=== PATIENT | male | born 1950 | race American Indian/Alaskan Native ===

== ENCOUNTER → 2017-09-03 | Day surgery (SDC) | payer MEDICARE, MEDICAID ==
[~2017-09-03] MED LIST: Dextrose 5%-0.45% NaCl 1,000 ML IV SCH; Midazolam 1 MG/ML 2 ML SDV IV ONE; Midazolam 1 MG/ML 2 ML SDV ONE; Sodium Chloride 0.9% 10 ML Syringe FLUSH PRN; fentaNYL 100 MCG/2 ML SDV IV ONE; fentaNYL 100 MCG/2 ML SDV ONE
--- NOTE | 2017-09-03 09:41 | OR ---
DATE: 09/03/2017 PROCEDURE: Esophagogastroduodenoscopy and multiple pinch biopsies. INSTRUMENT USED: GIF-Q180 Olympus video panendoscope. PREMEDICATIONS: No oral topical anesthesia used. Fentanyl 100 mcg intravenous, Versed 2 mg intravenous. Nasal O2 cannula. The procedure was done under pulse oximetry, BP recording, and animal care assistant. INDICATION: The patient with progressive dysphagia, unexplained. Esophagogastroduodenoscopy is performed for detection of any active erosive lesions, Manzo's esophagus and/or malignancy also under consideration, H. pylori status to be determined, esophageal dilatations if indicated, endoscopic hemostasis therapy if needed. DESCRIPTION OF PROCEDURE: The scope was passed with ease. Adequate visualization of the esophagus was made from proximal to distal areas. No upper esophageal lesions identified. Grade A erosive changes were noted by [place] criteria. No uphill or downhill esophageal varices noted. No Kelly- Weinberg tear. There was some stricture of the distal esophagus, but the tip of the scope was passed with ease to visualize the gastric mucosa. Sliding hiatal hernia was noted. Gastric fundus examination by retroflexion showed no polypoid lesions. No gastric polyp, malignant mass, or vascular ectasia identified. Patchy erythema of the antrum was noted along with erosions without bleeding from it. Duodenal bulb showed no ulcer. Visualized second part of the duodenum was unremarkable. Multiple pinch biopsies were taken from the gastric antrum and proximal body and sent for PyloriTek test for H. pylori, and if negative in an hour, tissue is to be sent for histopathology. No bleeding was noted from any of the visualized areas at the completion of examination. Photographs were taken of the duodenal bulb, gastric antrum, fundus, and distal esophagus. IMPRESSION: 1. Grade A gastroesophageal reflux disease. 2. Sliding hiatal hernia. 3. Distal esophageal stricture. 4. Gastric antral erosion. The patient tolerated the procedure well. [facility] /[id number]
--- NOTE | 2017-09-03 09:44 | OR ---
DATE: 09/03/2017 PROCEDURE DONE: Esophageal dilatation. INSTRUMENT USED: Proctor Bougie dilator, [place] size 48. PREMEDICATIONS: Done after EGD. INDICATION: Peptic esophageal stricture. DESCRIPTION OF PROCEDURE: Esophageal dilatation was done with ease using [place] size 48 dilator. No blood was noted at dilated tip after completion. IMPRESSION: Peptic esophageal stricture. The patient tolerated the procedure well. [facility] /[id number]
--- NOTE | 2017-09-03 10:38 | LETTER ---
09/03/2017 Tam Wells MD [facility] [address] [place] [address] RE: MARCK STONE : [address] Wells: Mr. Marck Stone had esophagogastroduodenoscopy and esophageal dilatation done today, tolerating well. Aspirin is discontinued, and he is put on omeprazole 20 mg p.o. daily for now. I herewith send a copy of the endoscopy note and photographs for your review. Thank you. Sincerely, [facility] /[id number]
[2017-09-03 10:57] VITALS: BP 126/57
== END | disposition home or self-care (01) ==
LOC: DL.ENDO 06:37
PROVIDERS: ATTEND Internal Medicine Gastroenterology
DX: K29.50 Unspecified chronic gastritis without bleeding (principal); K44.9 Diaphragmatic hernia without obstruction or gangrene; K21.9 Gastro-esophageal reflux disease without esophagitis; K22.2 Esophageal obstruction; E11.22 Type 2 diabetes mellitus with diabetic chronic kidney disease; I12.9 Hypertensive chronic kidney disease with stage 1 through stage 4 chronic kidney disease, or unspecified chronic kidney disease; N18.9 Chronic kidney disease, unspecified; E66.9 Obesity, unspecified; Z94.4 Liver transplant status; Z87.891 Personal history of nicotine dependence
CPT/HCPCS: 43239; 43450; 87077; J2250; J3010; J7042; 88305

== ENCOUNTER 2019-04-24 09:13 | Emergency (ER) | payer OTHER, MEDICARE, MEDICAID ==
[2019-04-24] MEDS ORDERED: Ondansetron 4 MG/2 ML SDV IV ONE (09:14)
[2019-04-24] MEDS ORDERED: Sodium Chloride 0.9% 10 ML Syringe FLUSH PRN (09:14)
--- NOTE | 2019-04-24 09:14 | EDM.PDOC ---
ED HPI GENERAL MEDICAL PROBLEM - General Chief Complaint: Lower Extremity Injury/Pain Stated Complaint: PRIVATE VEHICLE Time Seen by Provider: 04/24/19 09:14 Source of Information: Reports: Patient, Old Records, Provider (Dr. Rosenthal), RN, RN Notes Reviewed History Limitations: Reports: No Limitations - History of Present Illness INITIAL COMMENTS - FREE TEXT/NARRATIVE: Pt sent from [place] by Dr. Rosenthal with report of possible gangrene and/or cellulitis of the left 1st toe and forefoot. Pt had an angioplasty or revascularization to the left lower extremity at [facility] in February 2019. Over the past couple of days the area of blackness at the plantar surface of the toe has been reported to have increased in size, redness has spread up onto the dorsum of the left foot, and the toe has become acutely painful. Pt denies any fevers, or drainage from the toe. Onset: Unknown/Unsure Duration: Chronic, Getting Worse Location: Reports: Lower Extremity, Left Quality: Reports: Ache Severity: Severe Improves with: Reports: None Associated Symptoms: Reports: No Other Symptoms Left Feet Pain Score (Numeric/FACES): 9 - Related Data Allergies Allergy/AdvReac Type Severity Reaction Status Date / Time No Known Allergies Allergy Verified 04/04/19 12:05 Home Meds: Home Meds Acetaminophen/HYDROcodone [[place] 325-5 MG] 1 tab PO Q6HR PRN 09/09/16 [History] Aspirin [Ecotrin] 81 mg PO DAILY 09/09/16 [History] Bisacodyl [Dulcolax] 10 mg RECTAL TID PRN 09/09/16 [History] Carvedilol 25 mg PO BID 09/09/16 [History] Cholecalciferol (Vitamin D3) [Vitamin D3] 1,000 units PO DAILY 09/09/16 [History ] Dextromethorphan/guaiFENesin [Robitussin DM] 10 ml PO Q4H PRN 09/09/16 [History] Dextrose [Glutose 15] 15 gm PO ASDIRECTED PRN 09/09/16 [History] Finasteride [Proscar] 5 mg PO DAILY 09/09/16 [History] Glimepiride 8 mg PO DAILY 09/09/16 [History] Glucagon HCl 1 mg IM .Q 15 MIN PRN 09/09/16 [History] Hydrocodone/Acetaminophen [Hydrocodon-Acetaminophen 5-325] 1 each PO Q6H PRN [History] Insulin Aspart [Novolog Flexpen] 15 units SUBCUT TIDAC 09/09/16 [History] Insulin Glarg,Human.Rec.Analog [LantUS] 26 unit SUBCUT BEDTIME 09/09/16 [History ] Insulin Glarg,Human.Rec.Analog [LantUS] 48 unit SUBCUT QAM 09/09/16 [History] Isosorbide Mononitrate [Imdur] 60 mg PO DAILY 09/09/16 [History] LORazepam [Ativan] 0.5 mg PO BEDTIME 09/09/16 [History] Lisinopril 2.5 mg PO Q48H 09/09/16 [History] Loperamide HCl [Imodium A-D] 2 mg PO QID PRN MDD 6 tabs/24 hours 09/09/16 [ History] Magnesium Oxide 500 mg PO TID 09/09/16 [History] Mycophenolate Mofetil [Cellcept] 1,000 mg PO BID 09/09/16 [History] Ondansetron HCl [Zofran] 4 mg PO Q6H PRN 09/09/16 [History] PEG 400/Hypromellose/Glycerin [Artificial Tears Drops] 1 drop EYEBOTH BID [History] Simvastatin [Zocor] 20 mg PO BEDTIME 09/09/16 [History] Tacrolimus 1 mg PO QAM 09/09/16 [History] Testosterone Cypionate 400 mg IM .Q MONTH 09/09/16 [History] Trolamine Salicylate [Asper-Flex] 1 applic TOP DAILY PRN 09/09/16 [History] predniSONE [Prednisone] 5 mg PO DAILY 09/09/16 [History] traZODone HCl [Trazodone HCl] 25 mg PO BEDTIME 09/09/16 [History] Docusate Sodium [Colace] 100 mg PO DAILY 09/29/16 [History] Acetaminophen 325 mg PO Q6H PRN 08/25/17 [History] Calcium Carbonate/Vitamin D3 [Calcium 600 + Vit D 400 Softgl] 400 - 600 units PO BID 08/25/17 [History] hydroCHLOROthiazide [Hydrochlorothiazide] 12.5 mg PO BID 08/25/17 [History] Methylcellulose [Citrucel] 500 mg PO DAILY PRN 09/03/17 [History] Past Medical History HEENT History: Reports: Cataract, Other (See Below) Other HEENT History: Retinipathy with impaired vision Cardiovascular History: Reports: CAD, High Cholesterol, Hypertension Respiratory History: Reports: None Gastrointestinal History: Reports: Chronic Diarrhea Other Gastrointestinal History: diarrhea, constipation Genitourinary History: Reports: Chronic Renal Insuffiency, Renal Disease, Other (See Below) Other Genitourinary History: RENAL TRANSPLANT Musculoskeletal History: Reports: Arthritis, Osteoarthritis Neurological History: Reports: CVA Other Neuro History: left sided weakness, insomnia Psychiatric History: Reports: Depression Endocrine/Metabolic History: Reports: Diabetes, Type II, Hypothyroidism Other Endocrine/Metabolic History: hypokalemia, disorder of phosphorus metablolism Hematologic History: Reports: None Immunologic History: Reports: None, Solid Organ Transplant Oncologic (Cancer) History: Reports: None Dermatologic History: Reports: None - Infectious Disease History Infectious Disease History: Reports: None - Past Surgical History HEENT Surgical History: Reports: Cataract Surgery, Other (See Below) (jaw surgery.) Cardiovascular Surgical History: Reports: None, Vascular Surgery (left radio- cephalic fistula 04/02/10. Fitulogram for poosly functioning fistula, 07/2010, left.) Respiratory Surgical History: Reports: None GI Surgical History: Reports: Cholecystectomy, Colonoscopy Male Surgical History: Reports: Other (See Below) (renal transplant, cadaveric, April 2014. right internal jugular tunneled dialysis catheter 02/12, removed 10/23/10.) Musculoskeletal Surgical History: Reports: Other (See Below) (repair laceration of left thumb radial and ulnar-war nerves 09/08/01.) Social & Family History - Family History Family Medical History: Noncontributory - Caffeine Use Caffeine Use: Reports: Coffee Caffeine Use Comment: 2-3 cups daily - Living Situation & Occupation Living situation: Reports: Extended Care Facility Occupation: Disabled Review of Systems - Review of Systems Review Of Systems: ROS reveals no pertinent complaints other than HPI. ED EXAM, GENERAL - Physical Exam Exam: See Below Exam Limited By: No Limitations General Appearance: Alert, No Apparent Distress Throat/Mouth: Normal Inspection Head: Atraumatic, Normocephalic Respiratory/Chest: No Respiratory Distress, Lungs Clear, Normal Breath Sounds, No Accessory Muscle Use, Chest Non-Tender Cardiovascular: Regular Rate, Rhythm Extremities: Other (Left 1st toe plantar surface is black, dry, with fat pad atrophy and peripheral erythema extending to the dorsum of the forefoot, no drainage, mild soft tissue swelling.) Neurological: Alert, Oriented, No Motor/Sensory Deficits Psychiatric: Normal Mood Course - Vital Signs Last Recorded V/S: Last Vital Signs Temp 97.3 F 04/24/19 09:15 Pulse 66 04/24/19 09:15 Resp 16 04/24/19 09:15 BP 122/62 04/24/19 09:15 Pulse Ox 97 04/24/19 09:15 - Orders/Labs/Meds Orders: Active Orders 24 hr Category Date Time Status Peripheral IV Care [RC] . DIRECTED Care 04/24/19 09:15 Active Sodium Chloride 0.9% [Saline Flush] Med 04/24/19 09:14 Active 10 ml FLUSH ASDIRECTED PRN Peripheral IV Insertion Adult [OM.PC] Stat Oth 04/24/19 09:14 Ordered Medication Orders Sodium Chloride (Saline Flush) 10 ml FLUSH ASDIRECTED PRN PRN Reason: Keep Vein Open Last Admin: 04/24/19 09:35 Dose: 10 ml Labs: Laboratory Tests 04/24/19 04/24/19 04/24/19 Range/Units 09:21 09:21 09:21 WBC 8.8 (5.0-10.0) 10^3/uL RBC 4.71 (4.6-6.2) 10^6/uL Hgb 13.5 L (14.0-18.0) g/dL Hct 41.1 (40.0-54.0) % MCV 87.3 (80-100) fL MCH 28.7 (27.0-34.0) pg MCHC 32.8 L (33.0-35.0) g/dL Plt Count 176 (150-450) 10^3/uL Neut % (Auto) 77.0 H (42.2-75.2) % Lymph % (Auto) 8.8 L (20.5-50.1) % [place] % (Auto) 9.8 H (2-8) % Eos % (Auto) 3.8 H (1.0-3.0) % Baso % (Auto) 0.6 (0.0-1.0) % Sodium 135 (135-145) mmol/L Potassium 3.8 (3.6-5.0) mmol/L Chloride 99 L (101-111) mmol/L Carbon Dioxide 26.0 (21.0-31.0) mmol/L Anion Gap 13.8 BUN 34 H (7-18) mg/dL Creatinine 1.2 (0.6-1.3) mg/dL Est Cr Clr Drug Dosing 52.43 mL/min Estimated GFR (MDRD) > 60 BUN/Creatinine Ratio 28.33 Glucose 115 H (74-105) mg/dL Calcium 8.7 (8.4-10.2) mg/dl Total Bilirubin 0.7 (0.2-1.0) mg/dL AST 22 (10-42) IU/L ALT 22 (10-60) IU/L Alkaline Phosphatase 72 (42-121) IU/L C-Reactive Protein 5.0 H (0.0-1.3) mg/dL Total Protein 7.1 (6.7-8.2) g/dl Albumin 3.7 (3.2-5.5) g/dl Globulin 3.4 Albumin/Globulin Ratio 1.09 Meds: Medications Generic Name Dose Route Start Last Admin Trade Name Freq PRN Reason Stop Dose Admin Sodium Chloride 10 ml 04/24/19 09:14 04/24/19 09:35 Saline Flush FLUSH 10 ml ASDIRECTED PRN Administration Keep Vein Open Discontinued Medications Generic Name Dose Route Start Last Admin Trade Name Freq PRN Reason Stop Dose Admin Ondansetron HCl 4 mg 04/24/19 09:14 04/24/19 09:35 Zofran IV 04/24/19 09:15 4 mg ONETIME ONE Administration Departure - Departure Time of Disposition: 10:32 Disposition: DC/Tfer to Acute Hospital 02 Condition: Fair Clinical Impression: Gangrene of toe of left foot, Peripheral vascular disease of foot - Discharge Information *PRESCRIPTION DRUG MONITORING PROGRAM REVIEWED*: No *COPY OF PRESCRIPTION DRUG MONITORING REPORT IN PATIENT DAMI: No Forms: ED Department Discharge, Interfacility Transfer EMTALA - My Orders Last 24 Hours: My Active Orders 04/24/19 09:14 Sodium Chloride 0.9% [Saline Flush] 10 ml FLUSH ASDIRECTED PRN Peripheral IV Insertion Adult [OM.PC] Stat 04/24/19 09:15 Peripheral IV Care [RC] . DIRECTED - Assessment/Plan Last 24 Hours: My Active Orders 04/24/19 09:14 Sodium Chloride 0.9% [Saline Flush] 10 ml FLUSH ASDIRECTED PRN Peripheral IV Insertion Adult [OM.PC] Stat 04/24/19 09:15 Peripheral IV Care [RC] . DIRECTED
--- NOTE | 2019-04-24 09:29 | PCM.SN ---
- Free Text/Narrative Note: Josesito Stone is a 68-year old male diabetic, resident of [facility], with a known history of peripheral arterial disease. He is being referred to ER for evaluation of increasing left foot pain with a history of recent (03/21/19) arterial angioplasty of vessels in the left lower extremity for ischemia to the left great toe. In February, Josesito was found to have significant arterial insufficiency to the left great toe. He underwent angioplasty. He is currently being treated for the resultant deep tissue injury to the toe. Daily dressings currently consist of hydrogel and Mepilex foam dressing. He now complains of increasing pain to the left great toe. There has been increasing redness to the forefoot since yesterday. He was started on antibiotic but the concern remains for recurrent ischemia. Plan: Sent to ER for evaluation by Dr. Quispe. May need transfer to [place] to be further evaluated for new ischemia. It is not like to complain of pain and it raises concerns, given his history. Copies of recent history and procedures were forwarded to Dr. Quispe.
[2019-04-24 09:31] VITALS: BP 122/62; PULSE 66
[2019-04-24 09:49] LABS: ANION GAP 13.8; CHLORIDE,CL 99 mmol/L (101-111); SODIUM,NA 135 mmol/L (135-145)
== END 2019-04-24 10:55 ==
LOC: DL.ED 09:13
DX: E11.52 Type 2 diabetes mellitus with diabetic peripheral angiopathy with gangrene (principal); I96 Gangrene, not elsewhere classified; I25.10 Atherosclerotic heart disease of native coronary artery without angina pectoris; E78.00 Pure hypercholesterolemia, unspecified; E11.22 Type 2 diabetes mellitus with diabetic chronic kidney disease; I12.9 Hypertensive chronic kidney disease with stage 1 through stage 4 chronic kidney disease, or unspecified chronic kidney disease; N18.9 Chronic kidney disease, unspecified; H26.9 Unspecified cataract; E11.319 Type 2 diabetes mellitus with unspecified diabetic retinopathy without macular edema; F32.9 Major depressive disorder, single episode, unspecified; Z79.4 Long term (current) use of insulin; Z79.82 Long term (current) use of aspirin; Z79.899 Other long term (current) drug therapy; Z86.73 Personal history of transient ischemic attack (TIA), and cerebral infarction without residual deficits; Z98.62 Peripheral vascular angioplasty status; Z94.0 Kidney transplant status
CPT/HCPCS: 36415; 80053; 85025; 86140; 96374; 99284; J2405

== ENCOUNTER 2022-10-05 09:54 | Observation (INO) | payer MEDICARE, MEDICAID ==
[2022-10-05] MEDS ORDERED: 50% Dextrose in Water 50 ML Syringe ONE (10:08)
[2022-10-05] MEDS ORDERED: Sodium Chloride 0.9% 10 ML Syringe FLUSH PRN (10:09)
[2022-10-05] MEDS ORDERED: 50% Dextrose in Water 50 ML Syringe IVPUSH ONE (10:09)
[2022-10-05] MEDS: Dextrose 5%-0.9% NaCl 1,000 ML IV SCH ×2 (10:13→14:15)
[2022-10-05 10:39] LABS: ANION GAP 18.5 mEq/L (7-13)
[2022-10-05 10:47] LABS: PTT,PARTIAL THROMBOPLSTIN TIME 35.9 SEC (22.0-34.0)
[2022-10-05] MEDS ORDERED: Bisacodyl 5 MG Tab PO PRN (13:33)
[2022-10-05] MEDS ORDERED: Acetaminophen 325 MG Tab PO PRN (13:33)
[2022-10-05] MEDS ORDERED: Ondansetron 4 MG/2 ML SDV IVPUSH PRN (13:33)
[2022-10-05] MEDS ORDERED: Docusate Sodium 100 MG Cap PO PRN (13:33)
[2022-10-05] MEDS ORDERED: Glucagon,Human Recombinant 1 MG Vial IM PRN (13:52)
[2022-10-05] MEDS ORDERED: 50% Dextrose in Water 50 ML Syringe IVPUSH PRN (13:52)
[2022-10-05] MEDS: predniSONE 5 MG Tab PO SCH (14:14)
[2022-10-05] MEDS: Insulin Lispro 100 Units/ML 3 ML Vial SUBCUT SCH ×2 (17:04→20:26)
[2022-10-05] MEDS: Acetaminophen/HYDROcodone 325-5 MG Tab PO PRN (17:11)
[2022-10-05] MEDS ORDERED: TACROLIMUS 0.5 MG PO SCH (20:00)
[2022-10-05] MEDS: MYCOPHENOLIC ACID 360 MG PO SCH (20:23)
[2022-10-05] MEDS: Heparin Sodium 5,000 Units/ML Vial SUBCUT SCH (20:25)
[2022-10-05] MEDS ORDERED: Carboxymethylcellulose Sodium 1% Ophth Gel 0.4 ML UD EYEBOTH PRN (21:03)
[2022-10-05] MEDS ORDERED: Loperamide 2 MG Cap PO PRN (21:03)
[2022-10-05] MEDS ORDERED: Gabapentin 300 MG Cap PO ONE (21:30)
[2022-10-06] MEDS: Dextrose 5%-0.9% NaCl 1,000 ML IV SCH (03:19)
[2022-10-06] MEDS: MYCOPHENOLIC ACID 360 MG PO SCH (05:13)
[2022-10-06] MEDS: Acetaminophen/HYDROcodone 325-5 MG Tab PO PRN (06:23)
[2022-10-06 07:25] LABS: ANION GAP 17.3 mEq/L (7-13)
[2022-10-06] MEDS: Insulin Lispro 100 Units/ML 3 ML Vial SUBCUT SCH ×2 (08:46→12:21)
[2022-10-06] MEDS ORDERED: Famotidine 20 MG Tab PO SCH (09:00)
[2022-10-06] MEDS ORDERED: Sodium Bicarbonate 650 MG Tab PO SCH (09:00)
[2022-10-06] MEDS ORDERED: Non-Formulary Medication 1 Each (Calcium Carbonate [Calcium] 600 MG Tablet) PO SCH (09:00)
[2022-10-06] MEDS ORDERED: Clopidogrel 75 MG Tab PO SCH (09:00)
[2022-10-06] MEDS ORDERED: Allopurinol 100 MG Tab PO SCH (09:00)
[2022-10-06] MEDS ORDERED: Calcitriol 0.25 MCG Cap PO SCH (09:00)
[2022-10-06] MEDS ORDERED: Isosorbide Mononitrate 30 MG Tab.ER PO SCH (09:00)
[2022-10-06] MEDS ORDERED: Brimonidine 0.2% Ophth Soln 5 ML Bottle EYEBOTH SCH (09:00)
[2022-10-06] MEDS ORDERED: Gabapentin 300 MG Cap PO SCH ×2 (09:00)
[2022-10-06] MEDS ORDERED: Finasteride 5 MG Tab PO SCH (09:00)
[2022-10-06] MEDS ORDERED: Tamsulosin 0.4 MG Cap.ER PO SCH (09:00)
[2022-10-06] MEDS: predniSONE 5 MG Tab PO SCH (09:52)
[2022-10-06] MEDS: Heparin Sodium 5,000 Units/ML Vial SUBCUT SCH (09:53)
[2022-10-06 13:24] VITALS: BP 112/49; PULSE 76
[2022-10-06] MEDS ORDERED: Simvastatin 10 MG Tab PO SCH (21:00)
== END 2022-10-06 13:26 | disposition home or self-care (01) ==
LOC: DL.ED 09:54 → DL.MS 11:47
PROVIDERS: ADMIT Internal Medicine; ATTEND Internal Medicine
DX: R53.1 Weakness (principal); R41.82 Altered mental status, unspecified; U07.1 COVID-19; I10 Essential (primary) hypertension; E78.00 Pure hypercholesterolemia, unspecified; I25.10 Atherosclerotic heart disease of native coronary artery without angina pectoris; I73.9 Peripheral vascular disease, unspecified; I12.9 Hypertensive chronic kidney disease with stage 1 through stage 4 chronic kidney disease, or unspecified chronic kidney disease; N18.9 Chronic kidney disease, unspecified; E03.9 Hypothyroidism, unspecified; E11.649 Type 2 diabetes mellitus with hypoglycemia without coma; Z79.4 Long term (current) use of insulin; Z79.899 Other long term (current) drug therapy; Z79.82 Long term (current) use of aspirin; Z98.890 Other specified postprocedural states; Z94.0 Kidney transplant status
CPT/HCPCS: 36415; 71045; 80048; 80053; 81001; 82947; 83605; 83880; 84484; 85025; 85610; 85730; 86140; 87040; 87086; 87088; 87186; 93005; 93010; 96361; 96374; 99222; 99239; 99284; 99285-25; A9270-GY; J1644; J1815-GY; J3490; J7042; J7512

== ENCOUNTER 2022-10-07 06:36 | Emergency (ER) | payer MEDICARE, MEDICAID ==
[2022-10-07] MEDS ORDERED: Albuterol/Ipratropium 3.0-0.5 MG/3 ML Neb Soln NEB ONE (06:48)
[2022-10-07] MEDS ORDERED: methylPREDNISolone Sodium Succinate 125 MG/2 ML SDV IVPUSH ONE (06:49)
[2022-10-07 07:23] VITALS: BP 125/67; PULSE 77
[2022-10-07 07:32] LABS: ANION GAP 13.3 mEq/L (7-13)
[2022-10-07 07:34] LABS: PTT,PARTIAL THROMBOPLSTIN TIME 42.6 SEC (22.0-34.0)
[2022-10-07] MEDS: Sodium Chloride 0.9% 10 ML Syringe FLUSH PRN ×4 (07:37→15:18)
[2022-10-07] MEDS ORDERED: Magnesium Sulfate/Water 2 GM in Premix Bag 1 BAG IV ONE (07:42)
[2022-10-07] MEDS ORDERED: cefTRIAXone 2 GM Vial IVPUSH ONE (07:49)
[2022-10-07] MEDS ORDERED: Sodium Chloride 0.9% 1,000 ML IV ONE (07:50)
[2022-10-07] MEDS ORDERED: Azithromycin 500 MG in Sodium Chloride 0.9% 250 ML IV ONE (07:51)
[2022-10-07 08:12] LABS: O2 DELIVERY DEVICE NASAL CANNULA
[2022-10-07 08:13] LABS: ALLEN TEST POSITIVE
[2022-10-07 08:14] LABS: BASE EXCESS ARTERIAL -6 mmol/L ((-2)-(+3)); BICARBONATE,ARTERIAL 19.4 mmol/L (22-26); O2 SATURATION ARTERIAL 95 % (95-100); PCO2 ARTERIAL 32 mmHg (35-45); PO2 ARTERIAL 77 mmHg (70-100)
[2022-10-07] MEDS ORDERED: 50% Dextrose in Water 50 ML Syringe ONE (08:23)
[2022-10-07] MEDS ORDERED: 50% Dextrose in Water 50 ML Syringe IVPUSH ONE (08:28)
[2022-10-07] MEDS ORDERED: Octreotide 100 MCG/ML SDV IVPUSH ONE (08:31)
[2022-10-07] MEDS: Dextrose 5%-0.9% NaCl with KCl 1,000 ML IV SCH ×2 (08:45→17:20)
[2022-10-07 10:46] LABS: BASE EXCESS ARTERIAL -3 mmol/L ((-2)-(+3)); BICARBONATE,ARTERIAL 20.7 mmol/L (22-26); O2 DELIVERY DEVICE BIPAP; O2 SATURATION ARTERIAL 90 % (95-100); PCO2 ARTERIAL 33 mmHg (35-45); PO2 ARTERIAL 57 mmHg (70-100)
[2022-10-07 10:58] LABS: ALLEN TEST POSITIVE
[2022-10-07 13:50] LABS: BASE EXCESS ARTERIAL -3 mmol/L ((-2)-(+3)); BICARBONATE,ARTERIAL 20.3 mmol/L (22-26); O2 DELIVERY DEVICE BIPAP; O2 SATURATION ARTERIAL 92 % (95-100); PCO2 ARTERIAL 30 mmHg (35-45); PO2 ARTERIAL 63 mmHg (70-100)
[2022-10-07 13:54] LABS: ALLEN TEST POSITIVE
[2022-10-07] MEDS ORDERED: Iopamidol 755 Mg/ML 100 ML Bottle IVPUSH ONE (13:58)
[2022-10-07] MEDS ORDERED: LORazepam 2 MG/ML SDV IVPUSH ONE (15:11)
[2022-10-07] MEDS ORDERED: Cefepime 1 GM Vial IVPUSH ONE (16:25)
== END 2022-10-07 18:20 ==
LOC: DL.ED 06:36
DX: U07.1 COVID-19 (principal); J12.82 Pneumonia due to coronavirus disease 2019; E11.649 Type 2 diabetes mellitus with hypoglycemia without coma; R41.0 Disorientation, unspecified; R06.03 Acute respiratory distress; I12.9 Hypertensive chronic kidney disease with stage 1 through stage 4 chronic kidney disease, or unspecified chronic kidney disease; E11.22 Type 2 diabetes mellitus with diabetic chronic kidney disease; N18.9 Chronic kidney disease, unspecified; M19.90 Unspecified osteoarthritis, unspecified site; E78.00 Pure hypercholesterolemia, unspecified; I25.10 Atherosclerotic heart disease of native coronary artery without angina pectoris; E03.9 Hypothyroidism, unspecified; Z79.82 Long term (current) use of aspirin; Z86.73 Personal history of transient ischemic attack (TIA), and cerebral infarction without residual deficits; Z79.899 Other long term (current) drug therapy
CPT/HCPCS: 36415; 36600; 70450; 70496; 70498; 71045; 80053; 81001; 82150; 82803; 82947; 83605; 83690; 83735; 83880; 84145; 84484; 85025; 85379; 85610; 85730; 86140; 87040; 93005; 93010; 94660; 96361; 96365; 96367; 96368; 96375; 99285; J0456; J0692; J0696; J2060; J2354; J2930; J3370; J3475; J3480; J3490; J7030; J7050; Q9967; J7620-GY